=== PATIENT | female | born 1965 | race Caucasian/White ===

== ENCOUNTER 2021-08-02 11:27 | Emergency (ER) | payer BC, SELFPAY ==
--- NOTE | ~2021-08-02 | XR_ITS ---
EXAMINATION: XR ankle RT min 3V DATE: 08/02/2021 11:47 INDICATION: Posterior right ankle pain and limited range of motion post injury with palpable pop TECHNIQUE: Anteroposterior, oblique, mortise, and lateral views of the right ankle were obtained. COMPARISON: None. FINDINGS: Alignment is normal. No fracture. Mild nonuniform joint space narrowing and small marginal osteophyt es at the right ankle consistent with mild osteoarthritis. No right ankle joint effusion. Additional mild osteoarthritis at the first-third tarsal metatarsal joints. Large Achilles calcaneal spur. There is prominent thickening and a few tiny enthesopathic ossicles at the distal Achilles tendon. IMPRESSION: 1. No right ankle joint effusion or acute osseous abnormality. 2. Chronic distal Achilles enthesopathy. 3. 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 Reviewed, dictated and finalized at location B.
[2021-08-02 11:34] VITALS: BP 170/92; PULSE 82; RESP 18; TEMP 36.4; O2SAT 100
[2021-08-02 11:38] VITALS: BP 170/92; PULSE 82; RESP 18; TEMP 36.4; O2SAT 100
--- NOTE | 2021-08-02 11:58 | ED.GENADULT ---
HPI - General Adult General Chief complaint: Extremity Problem,Nontraumatic Stated complaint: rt foot pain Time Seen by Provider: 08/02/21 11:58 Source: patient, RN notes reviewed and old records reviewed Mode of arrival: ambulatory Limitations: no limitations History of Present Illness HPI narrative: 55-year-old female who presents to [facility] with complaints of feeling a pop to her right posterior ankle last pm and can't walk well since feeling pop. Patient states she has some difficulty lifting her foot upward causes increase in her pain, feels better when foot in downward position. Patient states she also had episode on Sunday where she felt a twinge of pain in her right ankle but then it went away.Patient does display limping gait on arrival to clinic. She reports that she has been taking Ibuprofen and Naproxen for her pain and using ice to her ankle and elevating her right foot.Patient states history of hypertension but states no present PCP, states that she can't afford physician office visits and blood work due to medical deductibles so has been without blood pressure medications. Location: right and lower extremity Related Data Allergies Allergy/AdvReac Type Severity Reaction Status Date / Time erythromycin base Allergy Mild VOMITING Verified 02/27/10 19:37 sulfamethoxazole Allergy Mild Verified 02/27/10 19:37 trimethoprim Allergy Mild Verified 02/27/10 19:37 Review of Systems Review of Systems: CONSTITUTIONAL: Denies fever, chills, or sweats. EYES: Denies visual changes, redness, or discharge. ENT: Denies rhinorrhea, congestion, sore throat, or otalgia. CARDIOVASCULAR: Denies chest pain, palpitations, or edema. RESPIRATORY: Denies cough or dyspnea. GASTROINTESTINAL: Denies abdominal pain, nausea, vomiting, or diarrhea. GENITOURINARY: Denies dysuria or hematuria. SKIN: Denies rash or itching. MUSCULOSKELETAL: Denies back pain,positive for right foot and ankle joint pain, or myalgia. NEUROLOGIC: Denies headache, numbness, or weakness. PSYCHIATRIC: Denies anxiety or depression. All systems reviewed & are unremarkable except as noted in HPI and below PMFSH Past Medical History Medical History (Updated 08/04/21 @ 11:14 by Pratima Vora NP) Anxiety and depression Elevated cholesterol Hypertension Ruptured ectopic Family History Family History (Updated 08/04/21 @ 11:02 by Pratima Vora NP) Other No significant family history Social History Social History (Updated 08/02/21 @ 12:21 by Pratima Vora NP) Smoking status: Never smoker Substance use: never Last use: rare social Living arrangements: with family Gender identity (if verbalized by the patient): Female Comments At time of signature, agree with nursing past medical, surgical, social and family history. There is no relevant family history pertinent to the presenting complaint Exam Narrative: GENERAL: Well-appearing, well-nourished, and in no acute distress. HEAD: Normocephalic, atraumatic. EYES: PERRLA and EOMI. ENT: Nares clear, no rhinorrhea or epistaxis. Mucous membranes moist.TM's normal throat pink with no lesions or exudates, no tonsil enlargement NECK: Supple.no lymphadenopathy CHEST: Clear to auscultation. No respiratory distress.SAO2 100% on room air HEART: Regular rate and rhythm. No murmur heard. Normal peripheral pulses. ABDOMEN: Soft, nontender, nondistended, normal active bowel sounds. EXTREMITIES: Normal range of motion. No edema. Exception noted to pain to posterior aspect of right heel area with limping gait.Pain increases with hyperextension of foot, negative Albert test bilaterally. Patient has strong pulses to right foot, foot warm and pink, brisk capillary refill to nail beds of right toes. SKIN: Warm, dry, no rash. NEURO: No focal deficits. Alert and oriented x3. Course Vital Signs Vital signs: Vital Signs Temperature 36.4 C L 08/02/21 11:34 Pulse Rate 82 08/02/21 11:34 Respiratory R
== END 2021-08-02 12:43 | disposition home or self-care (01) ==
PROVIDERS: Emergency Provider Registered Nurse
DX: M77.31 Calcaneal spur, right foot (principal); M76.61 Achilles tendinitis, right leg; E78.00 Pure hypercholesterolemia, unspecified; I10 Essential (primary) hypertension
CPT/HCPCS: 73610; 99203; G0463